=== PATIENT | female | born 1985 | race Caucasian/White ===

== ENCOUNTER 2023-08-24 15:00 | Emergency (ER) | payer OTHER ==
[~2023-08-24] VITALS: Ht 165.1 cm; Wt 59.9 kg
[2023-08-24] MEDS ORDERED: IBUPROFEN 600 MG TABLET ONE (15:22)
[2023-08-24] MEDS ORDERED: IBUPROFEN 600 MG TABLET PO ONE (15:30)
[2023-08-24 16:17] VITALS: BP 120/75; TEMP 98.2; O2SAT 100
== END 2023-08-24 16:13 | disposition home or self-care (01) ==
LOC: ER 15:04
DX: R07.89 Other chest pain (principal); Z60.2 Problems related to living alone
CPT/HCPCS: 71045-TC